=== PATIENT | female | born 1955 | race Caucasian/White ===

== ENCOUNTER 2016-08-23 12:36 | Inpatient (IN) | payer OTHER ==
[~2016-08-23] VITALS: Ht 165.1 cm; Wt 80.1 kg
--- NOTE | ~2016-08-23 | CON ---
PATIENT'S NAME: SU BEAUCHAMP [facility] AGE: 61 Y [address] ROOM: [id number] [place], [place] [address] LOCATION: [facility] ADMIT DATE: 08/23/2016 Consultation DISCHARGE DATE: FAMILY PHYSICIAN: PHYSICIAN, UNKNOWN ATTENDING PHYSICIAN: Kyle Martinez DATE OF CONSULTATION: 08/27/2016 REFERRING PHYSICIAN: YUDY WRIGHT MD Team members reporting include Dr. Martinez; Kalie Ly, social and political studies professor; Kalina Ferguson RN; Chiara De Los Santos, PT; Alana Mendieta, OT; Ekaterina Abebe, Speech Therapy; Yvrose Hurtado, therapeutic rec; and Sister Maggie Akhtar, Pastoral Care. CURRENT STATUS: Su is a 60-year-old woman, who admitted to our inpatient rehab unit on August 23, 2016, from [facility] in [place]. On August 02, 2016, the patient did have an encounter with a bull where she was hit by the bull. The patient did have multiple rib fractures with respiratory failure. She also had to have plating of those rib fractures. She had skeletal fractures, small subarachnoid hemorrhage, liver and kidney laceration, transverse process fracture of T10 and T11, and an MRI that revealed an acute versus subacute thalamic CVA. The patient did have bilateral chest tubes that are no longer present. The patient did come to us with a Dobhoff now, it has since been removed. She does have a history of diabetes and hypertension. The patient is currently continent of bowel and bladder. She does have the chest tube sites that are healing. She has incisions with bruising. Her groins are red. The patient does take some Flexeril and Roxicodone for pain. The patient can complete transfers fqn-aj-objgvq and brlium-aa-ahs at moderate assistance; lsh-uk-qfkao and jxiuw-nq-ovr, contact guard assistance; and tgr-ew-ukbmo and umcdf-un-xki, contact guard assistance. She can walk 45 feet with a front-wheeled walker at contact guard assistance. Stairs have not been done yet for safety. Her goals for PT will be set at modified independent to standby assistance for stairs. The patient can dress her upper and lower body at minimal assistance. Grooming, standby; bathing, max assistance; toilet and shower transfers, contact guard assistance. The patient does have significant upper extremity weakness. She has met 3/12 long-term OT goals set at modified independence to standby. Comprehension, standby; language and expression, standby; memory, minimal assistance; problem solving, minimal assistance; and swallowing is currently dependent at this time, however, we are working on the patient's nutrition since Dobhoff has been pulled. Therapeutic rec just did an initial evaluation on the patient. The patient is to be upright and supervised while she is eating. The patient has been very open to Pastoral Care. DISCHARGE PLAN: PATIENT'S NAME: SU BEAUCHAMP [facility] AGE: 61 Y [address] ROOM: [place] [address] LOCATION: [facility] ADMIT DATE: 08/23/2016 Consultation DISCHARGE DATE: FAMILY PHYSICIAN: PHYSICIAN, UNKNOWN ATTENDING PHYSICIAN: Kyle Martinez The patient is receiving 3 hours of PT, OT, and Speech Friday through Friday. The patient has daily rehab, nursing, and physiatry involvement as well as therapeutic recreational services 4 days per week. The patient has shown functional improvement and is progressing. Please see her plan of care for specific goals. Plan is for the patient to discharge in approximately 2 weeks. Plan is for the patient to discharge to home with her in [place], [place]. KALIE LY FOR KYLE MARTINEZ MD TD/modl /[id number] d: 09/06/16 1753 t: 09/26/16 1632, CONSULTATION REPORT
--- NOTE | ~2016-08-23 | HP ---
PATIENT'S NAME: SU BEAUCHAMP [facility] AGE: 60 Y [address] ROOM: [place] [address] LOCATION: [facility] ADMIT DATE: 08/23/2016 History & Physical DISCHARGE DATE: FAMILY PHYSICIAN: PHYSICIAN, UNKNOWN ATTENDING PHYSICIAN: Kyle Caro DATE OF SERVICE: HISTORY OF PRESENT ILLNESS: This 60-year-old lady is admitted from [facility] for continuous medical treatment and intensive rehabilitation. She was, as per history, 3 weeks ago rammed by a bull with multiple injuries including rib fractures, status post open reduction and internal fixation, and she had bilateral chest tubes, which are at the present time removed. She is with a Dobhoff tube and also receives tray. She is with multiple injuries and polytrauma, and is doing well, alert and oriented. Vitals on admission: Blood pressure 138/73, temperature 98.3, pulse 101, and respiration rate 20. She is 5 feet 5 inches tall and weighs 90 kg. ALLERGIES: SHE IS ALLERGIC TO MEPERIDINE. SHE IS AT THE PRESENT TIME ABLE TO COMPREHEND, EXPRESS; CAN TALK. VOICE IS CLEAR AND NOT QUICK. SHE IS AT THE PRESENT TIME ABLE TO COMPREHEND, EXPRESS WITHOUT DIFFICULTY. SHE IS WITH DOBHOFF TUBE, AND WE WILL CONTINUE TO WATCH HER AND DO A MODIFIED BARIUM SWALLOW IF NECESSARY. SHE IS AT THE PRESENT TIME WITH PAST HISTORY OF FOLLOWIN. HISTORY OF DIABETES TYPE 2, INSULIN DEPENDENT. 2. STATUS POST GALLBLADDER STONES. 3. BACK PAIN PER HISTORY AND SKELETAL PAIN. 4. HYPOTHYROID. 5. HYPERTENSION. SHE IS AT THE PRESENT TIME ON THE FOLLOWING MEDICATIONS: 1. LIDOCAINE 2 PATCHES DAILY TRANSDERMAL. 2. COZAAR 50 MG DAILY. 3. ASPIRIN 81 MG P.O. PER PEG TUBE. 4. INSULIN ASPART (HUMALOG) MODERATE SCALE PER PROTOCOL. 5. WATER FOR IRRIGATION Q.6 HOURS. PATIENT'S NAME: SU BEAUCHAMP [facility] AGE: 60 Y [address] ROOM: [place] [address] LOCATION: [facility] ADMIT DATE: 08/23/2016 History & Physical DISCHARGE DATE: FAMILY PHYSICIAN: PHYSICIAN, UNKNOWN ATTENDING PHYSICIAN: Kyle Caro 6. ACETAMINOPHEN 1000 MG Q.6 HOURS, DO NOT EXCEED ACETAMINOPHEN 4 G Q.24 HOURS. 7. SODIUM CHLORIDE 1 SYRINGE EVERY FLUSH NEEDED. 8. DULCOLAX 10 MG SUPPOSITORY P.R.N. 9. MAGNESIUM HYDROXIDE, MILK OF MAGNESIA, 30 ML P.O. P.R.N. AT BEDTIME. 10. FLEXERIL, GAVE 5 MG TABLET T.I.D. P.O. 11. LOVENOX 30 MG SUBCU B.I.D. 12. LOPRESSOR 25 MG P.O. B.I.D. 13. LIPITOR 40 MG P.O. DAILY AT BEDTIME. 14. ALBUTEROL 0.5 TO 3 MG PER 3 ML AT BEDTIME INHALATION. 15. NACL 250 IV NEEDED . 16. ZOFRAN 2 MG Q.6 HOURS IV NEEDED. 17. OXYCODONE HYDROCHLORIDE 5 MG Q.6 HOURS P.R.N. NEEDED. 18. ARTIFICIAL TEARS OPHTHALMIC Q.6 HOURS IN EACH EYE NEEDED. 19. GLUCAGON 1 MG SUBCU DAILY NEEDED. 20. DEXTROSE 50% IV NEEDED FOR HYPOGLYCEMIA P.R.N. 21. GLUCOSE 16 G P.O. NEEDED FOR HYPOGLYCEMIA P.R.N. 22. LIDOCAINE 5% PATCH, APPLY AT 9:00 A.M. P.R.N. NEEDED. 23. INSULIN DETEMIR SUBCU UNTIL 08/24 AND THEN DISCONTINUE. 24. INSULIN ASPART MODERATE SCALE PER PROTOCOL. 25. INSULIN DETEMIR 60 UNITS SUBCU NEEDED. 26. FLEXERIL 10 MG TABLET T.I.D. 27. TYLENOL LIQUID 160 MG EQUAL TO 5 ML, 1000 MG Q.6 HOURS, DO NOT EXCEED ACETAMINOPHEN 4 G Q.24 HOURS. SHE WILL BE AT THE PRESENT TIME PUT ON INTENSIVE PT, OT, SPEECH, AND WE WILL DO MODIFIED BARIUM SWALLOW IF NECESSARY. HER LABS ON THE NEXT MORNING AND ON 08/24 WERE FOLLOWS: 1. ACCU-CHEK AT 0812 HOURS WAS RANGING 68 TO 166. 2. CBC: WHITE BLOOD COUNT 7.4, RBC 3.08, HEMOGLOBIN 9.1, HEMATOCRIT 29.3, AND PLATELETS 470. 3. CMS: SODIUM 142, POTASSIUM 4.4, CHLORIDE 109, CO2 OF 25, BUN 30, CREATININE 0.5, AND GLUCOSE 185. 4. UA WITHIN NORMAL LIMITS. 5. PREALBUMIN 34. THE PATIENT CAN CONTROL AND MOVE ALL 4; HOWEVER, SHE IS MARKEDLY WEAK, AND WE WILL PUT ON INTENSIVE PT, OT, AND SPEECH 3 HOURS PER DAY, 15 HOURS PER WEEK FOR ABOUT 3 TO 4 WEEKS AIMING TO DISCHARGE ON MODIFIED INDEPENDENCE. WE WILL DO ACCU-CHEKS Q.4 HOURS FOR THE TIME BEING. WE WILL HAVE HOSPITALIST AND AN ORTHOPOD, DR. HERNANDEZ TO FOLLOW NECESSARY. ALL THE ABOVE WAS EXPLAINED TO HER IN DETAIL AND HER QUESTIONS ANSWERED IN DETAIL. SHE VERBALIZED UNDERSTANDING AND AGREEMENT. PATIENT'S NAME: SU BEAUCHAMP [facility] AGE: 60 Y [address] ROOM: [place] [address] LOCATION: [facility] ADMIT DATE: 08/23/2016 History & Physical DISCHARGE DATE: FAMILY PHYSICIAN: PHYSICIAN, UNKNOWN ATTENDING PHYSICIAN: Kyle Caro MD NAKUL GALARZA/modanette /[id number] D: 955 T: HISTORY & PHYSICAL
--- NOTE | ~2016-08-23 | DS ---
PATIENT'S NAME: SU BEAUCHAMP [facility] AGE: 61 Y [address] ROOM: [address] [place] [address] LOCATION: [facility] ADMIT DATE: 08/23/2016 Discharge Summary DISCHARGE DATE: FAMILY PHYSICIAN: Physician, Unknown ATTENDING PHYSICIAN: Kyle Caro This 61-year-old lady was admitted to rehab unit at [facility] on 08/23/2016 with multiple injuries, especially ribs, status post ORIF and then chest tube that was DC'ed eventually with marked weakness, dependent activities of daily living, and self-care. She was put on intensive PT, OT, and speech. She is doing well. At the present time, alert and oriented x3. Vitals: Blood pressure 163/85, temperature 97.4, pulse 82, respirations 17. Her hemoglobin improved, that is now 9.8; and hematocrit 30.3; platelets 217. CMS: Sodium 144; potassium 3.4, she is put on potassium supplementation; chloride 108; CO2 of 28; BUN 7; creatinine 0.4; and glucose 118. Her prealbumin is 18.0. She is able to ambulate 250 feet with standby assistance and through desiree. She is on the following medications: 1. Aspirin 81 mg p.o. daily. 2. Lipitor 40 mg at bedtime. 3. Levemir 10 units subcu at bedtime. 4. Lidoderm patch, two patches trans daily for 30 days. 5. Cozaar 50 mg p.o. daily. 6. Lopressor 25 mg b.i.d. 7. K-Tab 20 mEq p.o. daily. 8. MOM 30 mL p.o. daily. 9. Zofran 4 mg q.6 hours, give 16 only. 10. Oxycodone immediate release 5 mg p.o. q.6 hours, give 36 of them. All renewal of medication through her family physician. FINAL DIAGNOSES: 1. Unstable gait. 2. Dependent activities and self-care. 3. Multiple injuries, secondary to being struck by a bull with multiple rib fractures, details on admission note, status post open reduction and internal fixation with bilateral chest tubes, at the present time PATIENT'S NAME: SU BEAUCHAMP [facility] AGE: 61 Y [address] ROOM: [address] [place] [id number] LOCATION: [facility] ADMIT DATE: 08/23/2016 Discharge Summary DISCHARGE DATE: FAMILY PHYSICIAN: Physician, Unknown ATTENDING PHYSICIAN: Klye Caro discontinued and doing well. 4. Diabetes type 2. 5. Hypertension. 6. Dyslipidemia. 7. She will continue on an outpatient basis PT/OT 3 times per week for the coming 4 weeks. I will see her thereafter. She must follow with her family physician as soon as possible. She is not to drive until she is re-evaluated. Again, she has been given outpatient PT/OT 3 times per week for the coming 4 weeks. All the above was explained to her and to her in detail. They verbalized understanding and agreement with plan of care and again, she should not operate any mechanical or electrical device until she is re-evaluated. MD NAKUL GALARZA/lucianal /[id number] d: 09/10/16 0353 t: 09/10/16 0805, DISCHARGE SUMMARY
--- NOTE | ~2016-08-23 | CON ---
PATIENT'S NAME: SU BEAUCHAMP [facility] AGE: 61 Y [address] ROOM: [place] [id number] LOCATION: [facility] ADMIT DATE: 08/23/2016 Consultation DISCHARGE DATE: FAMILY PHYSICIAN: PHYSICIAN, UNKNOWN ATTENDING PHYSICIAN: Kyle Caro DATE OF CONSULTATION: 09/03/2016 REFERRING PHYSICIAN: Shraddha Burton APRN. REASON FOR VISIT: Left mid incisional back wound. HISTORY OF PRESENT ILLNESS: This is a 61-year-old female patient who was admitted to [facility] following a polytrauma injury secondary to a traumatic bull attack. She was taken to [facility] for further care. She was transitioned to [facility] for rehab. She suffered from multiple bilateral rib fractures post ORIF, left scapular fracture, and transverse process fractures of the lumbar spine. She has a significant history of type 2 diabetes mellitus, hypertension, and hypothyroidism. Primary nurse reports Steri-Strips fell off to her left back incisional wound this morning. Drainage was noted, so a gauze pad was applied to the site. The patient reports her pain is under control. She does wear lidocaine patches. The patient denies fevers or chills. She reports a fair oral intake and the only meat she will eat is chicken. She is denying chest pain or shortness of breath. She is hoping to return home soon. PAST MEDICAL HISTORY: Type 2 diabetes mellitus with insulin use, traumatic subarachnoid hemorrhage, hypertension, and hypothyroidism. PAST SURGICAL HISTORY: Hysterectomy; tonsillectomy; cleft palate repair; bilateral rib fractures, status post ORIF; and left scapular repair. FAMILY HISTORY: Father from an [place]. SOCIAL HISTORY: The patient is from [place], [place]. [place] She is a never smoker. She denies alcohol use. PATIENT'S NAME: SU BEAUCHAMP [facility] AGE: 61 Y [address] ROOM: [place] [address] LOCATION: [facility] ADMIT DATE: 08/23/2016 Consultation DISCHARGE DATE: FAMILY PHYSICIAN: PHYSICIAN, UNKNOWN ATTENDING PHYSICIAN: Kyle Caro ALLERGIES: MEPERIDINE. CURRENT MEDICATIONS: Please refer to the medication administration record. PHYSICAL EXAMINATION: VITAL SIGNS: Temperature is 97.7, pulse 90, respirations 14, blood pressure 114/86, and pulse oximetry 100% on room air. Height 5 feet 5 inches and weight 78.2 kg. GENERAL: The patient is alert and oriented x3. Pleasant with cares, in no acute distress. HEENT: Head is normocephalic. Oral mucosa intact. Mucous membranes moist. NECK: Supple. LUNGS: Respirations are even and unlabored. ABDOMEN: Soft. EXTREMITIES: No edema noted. SKIN: Left midback wound measures 0.5 cm width x 3.0 cm length x 0.2 cm depth. Brown necrosis noted to wound bed. Periwound is erythemic and indurated with skin peeling. Scant serous exudate noted. No odor or purulent exudate. Bilateral lower back incisions are approximated. Two Steri-Strips remain on the right side. Left chest tube site is scabbed and slightly erythemic. Breasts and groin folds are intact. LABORATORY DATA: White blood cell count 2.5, hemoglobin 9.2, hematocrit 29.3, platelets 204. Pre-albumin 23. Sodium 144, potassium 4.1, chloride 109, bicarb 28, BUN 14, creatinine 0.5, glucose 105, and albumin 2.3. ASSESSMENT AND PLAN: Again, this is a 61-year-old female patient who was admitted to [facility] following a traumatic bull injury. She was stabilized at [facility] and transferred to [facility] for rehab services. Wound Care consult to evaluate and assess a left midback wound. 1. Left midback wound. The patient is status post scapular repair per granddaughter. The area is currently scabbed. We will cover with an Allevyn foam dressing to encourage autolytic debridement. I instructed the nursing to change Friday, Friday, and p.r.n. saturation. Area is slightly indurated and erythemic. We will continue to monitor. If no improvement is noted in next 4 to 7 days, we will transition the patient to a silver dressing or Bactroban ointment. The patient was educated on the signs and symptoms of infection. No purulent drainage from the site, no need to culture at this point. We will continue to monitor. 2. Type 2 diabetes mellitus with insulin use. The patient on Accu-Cheks PATIENT'S NAME: LICKING, SU E [facility] AGE: 61 Y [address] ROOM: [place] [address] LOCATION: [facility] ADMIT DATE: 08/23/2016 Consultation DISCHARGE DATE: FAMILY PHYSICIAN: PHYSICIAN, UNKNOWN ATTENDING PHYSICIAN: Kyle Caro with sliding scale insulin. 3. Polytrauma. The patient is receiving rehab. 4. Nutrition. Dietary on board. The patient is receiving Ensure puddings with dinner. Discussed the need for increased protein intake for wound healing. 5. Pain related to traumatic injury. Controlled on lidocaine patches. I would like to thank Shraddha Burton APRN for this consultation. JOY MENA APRN FOR MD NANCY IQBAL/chema /[id number] d: 09/04/16 0047 t: 09/11/16 1715, CONSULTATION REPORT
--- NOTE | ~2016-08-23 | CON ---
PATIENT'S NAME: SU BEAUCHAMP [facility] AGE: 61 Y [address] ROOM: [address] [place], [place] [address] LOCATION: [facility] ADMIT DATE: 08/23/2016 Consultation DISCHARGE DATE: FAMILY PHYSICIAN: PHYSICIAN, UNKNOWN ATTENDING PHYSICIAN: Kyle Martinez DATE OF CONSULTATION: 09/03/2016 REFERRING PHYSICIAN: YUDY WRIGHT MD Team members reporting include Dr. Martinez; Kalie Ly, geriatric social worker; Elda Sinha, RN; Chiara De Los Santos, PT; Kaylyn Danielson, PT; Alana Mendieta, OT; Ekaterina Abebe, Speech Therapy, Yvrose Hurtado, therapeutic rec; and Sister Maggie Akhtar, Pastoral Care. CURRENT STATUS: Su is a 61-year-old woman admitted to our inpatient rehab unit on August 23, 2016, following being rammed by a bull. Wound Ostomy has been consulted as the patient does have an open area that had previously had Steri-Strips on it from a surgical site. Wound Ostomy will see about approximating that. The patient is currently continent of bowel and bladder. We are currently encouraging the patient for oral intake. She is on a consistent carbohydrate diet. The patient does not like the Magic Cup, so this was discontinued per her request. They changed her supplement to Ensure pudding, from chocolate to butterscotch. The patient's intake is anywhere from 25% to 100%. The patient does report her appetite is improving. Her prealbumin is currently 23. The patient can complete pbg-mm-hlbdny transfers at contact guard assistance; supine to sit transfers, minimal assistance; sit to stand and stand to sit transfers, standby; and bed to chair and chair to bed transfers, standby. She is able to walk 300 feet with a single-point cane at contact guard assistance, and she can climb 8 stairs with 2 rails; going up, standby assistance, coming down, contact guard assistance. She has met 3/5 short-term PT goals. The patient can dress her upper and lower body at standby; grooming and bathing, standby; toilet and shower transfers, standby; toileting, standby; and feeding, standby. The patient does tire easily and complains of dizziness. She has met 02/12 long-term OT goals and 04/13 short-term OT goals. Comprehension, language, and expression are currently at standby; memory, standby; problem solving, minimal to standby assistance; and swallowing, standby. The patient did go for a long car ride at contact guard assistance to standby assistance for transfer. The patient is coping with injuries and likes to do crafts to relax. Speech Therapy continues to be concerned that the patient continues to not eat enough. The patient has been very open to pastoral care. DISCHARGE PLAN: The patient is receiving 3 hours of PT, OT, and speech Friday through Friday. PATIENT'S NAME: SU BEAUCHAMP [facility] AGE: 61 Y [address] ROOM: [address] [address] LOCATION: [facility] ADMIT DATE: 08/23/2016 Consultation DISCHARGE DATE: FAMILY PHYSICIAN: PHYSICIAN, UNKNOWN ATTENDING PHYSICIAN: Kyle Martinez The patient has daily rehab, nursing, and physiatry involvement as well as therapeutic recreational services 4 days per week. The patient has shown functional improvement and is progressing. Please see her plan of care for specific goals. Plan is for the patient to discharge in approximately 7 days. Plan is for the patient to return to home with her in [place], [place]. KALIE LY FOR KYLE MARTINEZ MD TD/lucianal /[id number] d: 09/06/16 1756 t: 09/26/16 1635, CONSULTATION REPORT
--- NOTE | ~2016-08-23 | CON ---
PATIENT'S NAME: QUYNH [facility] AGE: 60 Y [address] ROOM: [place] [address] LOCATION: [facility] ADMIT DATE: 08/23/2016 Consultation DISCHARGE DATE: FAMILY PHYSICIAN: PHYSICIAN, UNKNOWN ATTENDING PHYSICIAN: Kyle Caro DATE OF CONSULTATION: 08/23/2016 REFERRING PHYSICIAN: YUDY WRIGHT MD REQUESTING PHYSICIAN: Kyle Caro M.D. CONSULTING PHYSICIAN: Yudy Wright M.D. REASON FOR CONSULTATION: Medical management. HISTORY OF PRESENT ILLNESS: The patient is a 60-year-old female, who has just been transferred here from [facility]. She has sustained an injury from an attack by a bull exactly 3 weeks ago. She has had extensive polytrauma and has gone a complicated hospitalization course at [facility]. This included respiratory failure, multiple rib fractures, multiple skeletal fractures as well as multiple additional injuries including hemothorax, pneumothorax, and has had an overall quite a complicated course. At this point, the patient has been steadily recovering. She has been fed through a Dobhoff tube for the last 2 weeks. She has a C-collar on. She is alert and oriented and cooperating with therapies. Her only complaint at this point is pain at various musculoskeletal fracture sites. REVIEW OF SYSTEMS: All systems have been reviewed and are negative aside from pertinent positives mentioned above. PAST MEDICAL HISTORY: Hypertension, insulin-dependent diabetes, a small stroke that was found at the outside facility, as well as polytrauma as mentioned above. FAMILY HISTORY: Reviewed and is noncontributory. SOCIAL HISTORY: No active toxic habits. PATIENT'S NAME: SU BEAUCHAMP [facility] AGE: 60 Y [address] ROOM: [place] [address] LOCATION: [facility] ADMIT DATE: 08/23/2016 Consultation DISCHARGE DATE: FAMILY PHYSICIAN: PHYSICIAN, UNKNOWN ATTENDING PHYSICIAN: Kyle Caro CURRENT MEDICATIONS: Being compiled from a list sent from [facility], these include; 1. Aspirin. 2. Cozaar. 3. Lantus 30. 4. Lipitor 40. 5. Lopressor. 6. Tylenol. 7. Albuterol. 8. Lidoderm. 9. Lovenox subcu, prophylactic dose. 10. Oxycodone as needed. 11. Flexeril. 12. Glucagon. 13. Zofran. PHYSICAL EXAMINATION: VITAL SIGNS: Blood pressure 138/73, temperature 98.3, pulse 101, and respirations 20. GENERAL APPEARANCE: This is a chronically ill, elderly female, in no acute distress. ENT: Reveals a Dobhoff tube with a string coursing into the opposite (left naris). Mucous membranes are moist. LYMPHATIC: Shows a C-collar in place with no cervical lymphadenopathy. ENDOCRINE: Shows no thyromegaly. LUNGS: Clear to auscultation in all black. HEART: Heart rate is slightly tachycardic and regular. GI: Abdomen is obese, soft, nontender, and nondistended. : Reveals no costovertebral angle tenderness. VASCULAR: Reveals 2+ pedal pulses. MUSCULOSKELETAL: Deferred. SKIN: Pale. PSYCHIATRIC: Reveals appropriate mood, cognition, and affect. No immediate studies are available right now. IMPRESSION AND RECOMMENDATIONS: This is a 60-year-old female, who was admitted for rehabilitation after a bull attack. Individual problems to be addressed. 1. Insulin dependant diabetes. At this point, I would like to hold her long- acting insulin as her Accu-Checks is only 65. Once we restart her tube feeds, we will restart her on a sliding scale. 2. Polytrauma, now receiving rehab. 3. Dobhoff tube. This particular tube has been in place for about 2 weeks PATIENT'S NAME: SU BEAUCHAMP [facility] AGE: 60 Y [address] ROOM: [place] [address] LOCATION: [facility] ADMIT DATE: 08/23/2016 Consultation DISCHARGE DATE: FAMILY PHYSICIAN: PHYSICIAN, UNKNOWN ATTENDING PHYSICIAN: Kyle Caro now, though the patient had a different orogastric tube prior to this one and we will keep in mind the complications of presence of long-term feeding tube and consider placing a PEG if we are not able to remove this one. 4. Essential hypertension. Continue the patient on her current regimen. 5. Deep venous thrombosis prophylaxis. I think she is at very high-risk for developing a deep venous thrombosis despite of being ambulatory. We should continue her deep venous thrombosis prophylaxis. 6. Additional management will depend on clinical course. We will follow the patient with you. Thank you very much for allowing us to participate in the care of this unfortunate woman. MD SHARAN FELDER/chema /[id number] d: 08/24/16 0144 t: 08/27/16 1252, CONSULTATION REPORT
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
[2016-08-23 18:34] LABS: BILIRUBIN URINE NEGATIVE (NEGATIVE); BLOOD URINE NEGATIVE /UL (NEGATIVE); COLOR URINE YELLOW (YELLOW); GLUCOSE URINE NEGATIVE (NEGATIVE); KETONE URINE NEGATIVE (NEGATIVE); LEUKOCYTES URINE 25 /UL (NEGATIVE); NITRITE URINE NEGATIVE (NEGATIVE); PROTEIN URINE NEGATIVE (NEGATIVE); TURBIDITY URINE CLEAR (CLEAR); UROBILINOGEN URINE NORMAL (NORMAL)
[2016-08-23 18:35] LABS: RBC URINE 0-2 #/HPF (NEGATIVE); WBC URINE 0-2 #/HPF (NEGATIVE)
[2016-08-23 18:36] LABS: BACTERIA URINE RARE (NEGATIVE)
[2016-08-23] MEDS ORDERED: LANTUS (IN100 UNIT/M SUB-Q ×2 (18:40→18:41)
[2016-08-23] MEDS ORDERED: HUMALOG100 UNIT/1 SUB-Q (18:43)
[2016-08-23] MEDS ORDERED: TYLENOL LI325 MG/10. DOB (18:44)
[2016-08-23] MEDS ORDERED: ASPIRIN (CHILDR81 MG PO (18:45)
[2016-08-23] MEDS ORDERED: LIPITOR40 MG PO (18:45)
[2016-08-23] MEDS ORDERED: DUONEB INH (18:45)
[2016-08-23] MEDS ORDERED: CYCLOBENZAPRINE5 MG DOB (18:46)
[2016-08-23] MEDS ORDERED: TEARS NATURALE30 ML OPHTH (18:47)
[2016-08-23] MEDS ORDERED: LOVENOX 4040 MG/0.4 SUB-Q (18:48)
[2016-08-23] MEDS ORDERED: LIDODERM1 EACH TRANS (18:49)
[2016-08-23] MEDS ORDERED: COZAAR50 MG PO (18:49)
[2016-08-23] MEDS ORDERED: LOPRESSOR25 MG PO (18:50)
[2016-08-23] MEDS ORDERED: ROXICODONE 5MG (5 MG PO (18:51)
[2016-08-24 07:10] LABS: BASOPHIL % 0.4 %; EOSINOPHIL # 0.3 K/uL (0.0-0.5); EOSINOPHIL % 3.5 %; HEMATOCRIT 29.3 % (33.0-46.0); HEMOGLOBIN 9.1 g/dL (10.0-15.0); IMMATURE GRANULOCYTE # 0.1 K/uL (0.0-0.3); IMMATURE GRANULOCYTE % 1.6 %; LYMPHOCYTE # 1.5 K/uL (0.8-4.0); LYMPHOCYTE % 20.6 %; MCH 29.5 pg (27.0-34.0); MCHC 31.1 gm/dL (32.0-36.5); MCV 95.1 fl (83.0-98.0); MONOCYTE # 0.5 K/uL (0.0-1.0); MONOCYTE % 6.5 %; MPV 9.5 fl (9.4-12.4); NEUTROPHIL % 67.4 %; NRBC % 0 /100WBC (0-0.00); PLATELET COUNT 473 K/uL (150-450); RBC 3.08 M/uL (3.50-5.50); RDW-CV 15.9 % (11.9-14.6); WBC 7.4 K/uL (4.0-11.0)
[2016-08-24 07:24] LABS: ALK PHOS 321 IU/L (33-138); ALT 36 IU/L (12-78); ANION GAP 12.4 (10.0-19.0); AST 22 IU/L (10-40); BLOOD UREA NITROGEN 30 mg/dL (6-24); CALCIUM 7.8 mg/dL (8.5-10.5); CHLORIDE 109 mMol/L (96-110); CO2 25 mMol/L (22-32); CREATININE 0.5 mg/dL (0.5-1.1); ESTIMATED GFR (MDRD EQUATION) > 60; POTASSIUM 4.4 mMol/L (3.7-5.1); SODIUM 142 mMol/L (135-145); TOTAL BILIRUBIN 0.2 mg/dL (0.0-1.5); TOTAL PROTEIN 5.9 g/dL (6.0-8.4)
[2016-08-24 07:35] LABS: ALBUMIN 1.9 gm/dL (3.5-5.0)
[2016-09-02 05:39] LABS: HEMATOCRIT 29.3 % (33.0-46.0); HEMOGLOBIN 9.2 g/dL (10.0-15.0); MCH 29.6 pg (27.0-34.0); MCHC 31.4 gm/dL (32.0-36.5); MCV 94.2 fl (83.0-98.0); MPV 10.1 fl (9.4-12.4); RBC 3.11 M/uL (3.50-5.50); RDW-CV 15.2 % (11.9-14.6); WBC 2.5 K/uL (4.0-11.0)
[2016-09-02 05:43] LABS: PLATELET COUNT 204 K/uL (150-450)
[2016-09-02 06:04] LABS: ALBUMIN 2.3 gm/dL (3.5-5.0); ALK PHOS 264 IU/L (33-138); ALT 26 IU/L (12-78); ANION GAP 11.1 (10.0-19.0); AST 20 IU/L (10-40); BLOOD UREA NITROGEN 14 mg/dL (6-24); CALCIUM 8.5 mg/dL (8.5-10.5); CHLORIDE 109 mMol/L (96-110); CO2 28 mMol/L (22-32); CREATININE 0.5 mg/dL (0.5-1.1); ESTIMATED GFR (MDRD EQUATION) > 60; POTASSIUM 4.1 mMol/L (3.7-5.1); SODIUM 144 mMol/L (135-145)
[2016-09-02 06:09] LABS: TOTAL BILIRUBIN 0.3 mg/dL (0.0-1.5)
[2016-09-02 06:28] LABS: ABSOLUTE NEUTROPHIL CT (ANC) 0.8 K/uL (1.8-7.8); LYMPHOCYTE # 1.3 K/uL (0.8-4.0); LYMPHOCYTE % 51 %; MONOCYTE # 0.4 K/uL (0.0-1.0); SEGMENTED NEUTROPHIL # 0.8 K/uL (1.8-7.8); SEGMENTED NEUTROPHIL % 30 %
[2016-09-09 05:40] LABS: BASOPHIL % 0.6 %; EOSINOPHIL # 0.1 K/uL (0.0-0.5); EOSINOPHIL % 2.9 %; HEMATOCRIT 30.3 % (33.0-46.0); HEMOGLOBIN 9.8 g/dL (10.0-15.0); IMMATURE GRANULOCYTE % 0.9 %; LYMPHOCYTE # 1.7 K/uL (0.8-4.0); LYMPHOCYTE % 49.4 %; MCHC 32.3 gm/dL (32.0-36.5); MCV 89.6 fl (83.0-98.0); MONOCYTE # 0.4 K/uL (0.0-1.0); MONOCYTE % 11.8 %; MPV 10.2 fl (9.4-12.4); NEUTROPHIL # (ANC) 1.2 K/uL (1.8-7.8); NEUTROPHIL % 34.4 %; NRBC % 0 /100WBC (0-0.00); PLATELET COUNT 217 K/uL (150-450); RBC 3.38 M/uL (3.50-5.50); RDW-CV 13.9 % (11.9-14.6); WBC 3.5 K/uL (4.0-11.0)
[2016-09-09 06:04] LABS: ALBUMIN 2.5 gm/dL (3.5-5.0); ALK PHOS 212 IU/L (33-138); ALT 21 IU/L (12-78); ANION GAP 11.4 (10.0-19.0); AST 17 IU/L (10-40); BLOOD UREA NITROGEN 7 mg/dL (6-24); CALCIUM 8.4 mg/dL (8.5-10.5); CHLORIDE 108 mMol/L (96-110); CO2 28 mMol/L (22-32); CREATININE 0.4 mg/dL (0.5-1.1); ESTIMATED GFR (MDRD EQUATION) > 60; POTASSIUM 3.4 mMol/L (3.7-5.1); SODIUM 144 mMol/L (135-145)
[2016-09-09 06:08] LABS: TOTAL BILIRUBIN 0.4 mg/dL (0.0-1.5)
[2016-09-10 05:45] LABS: ANION GAP 10.8 (10.0-19.0); BLOOD UREA NITROGEN 7 mg/dL (6-24); CALCIUM 8.3 mg/dL (8.5-10.5); CHLORIDE 110 mMol/L (96-110); CO2 30 mMol/L (22-32); CREATININE 0.5 mg/dL (0.5-1.1); ESTIMATED GFR (MDRD EQUATION) > 60; POTASSIUM 3.8 mMol/L (3.7-5.1)
[2016-09-10 05:46] LABS: SODIUM 147 mMol/L (135-145)
[2016-09-10] MEDS ORDERED: LEVEMIR100 UNIT/1 SUB-Q (08:49)
[2016-09-10] MEDS ORDERED: K-TAB 10MEQ10 MEQ PO (08:55)
[2016-09-10] MEDS ORDERED: MILK OF MA400 MG/5 M PO (08:57)
[2016-09-10] MEDS ORDERED: ZOFRAN4 MG PO (08:58)
== END 2016-09-10 10:37 | disposition disaster alternative care site (69) | DRG 561 ==
LOC: EDBD → GIRP 18:13
PROVIDERS: ADMIT Physical Medicine & Rehabilitation
DX: S22.43XD Multiple fractures of ribs, bilateral, subsequent encounter for fracture with routine healing (principal); I10 Essential (primary) hypertension; E11.9 Type 2 diabetes mellitus without complications; E78.5 Hyperlipidemia, unspecified; E03.9 Hypothyroidism, unspecified; R26.81 Unsteadiness on feet; Z74.1 Need for assistance with personal care; Z79.82 Long term (current) use of aspirin; Z79.4 Long term (current) use of insulin
CPT/HCPCS: J1650; J2405; Q0162